=== PATIENT | female | born 1955 | race Caucasian/White ===

== ENCOUNTER 2017-03-15 03:27 | Observation (INO) | payer BC ==
[~2017-03-15] VITALS: Ht 160 cm; Wt 82.0 kg
[~2017-03-15 03:27] MED LIST: ASPIRIN325 MG PO; CIPRO500 MG PO; CLEOCIN150 MG PO; CLINDAMYCIN HCL75 MG PO; DIFLUCAN150 MG PO; DIOVAN160 MG PO; DRISDOL50000 UNIT PO; ESTRACE42.5 GM VG; FLAGYL500 MG PO; HYDROCODON-ACE1 EAC7 PO; LEVAQUIN750 MG PO; METRONIDAZOLE500 MG PO; VIMOVO 500-201 EAC1 PO; VITAMIN D34000 UNIT PO; ZOFRAN ODT4 MG PO
[2017-03-15 04:26] LABS: EOSINOPHIL (%) 0.7 % (0-5); EOSINOPHIL COUNT 0.1 K/uL (0-0.3); HEMATOCRIT 39.5 % (36.0-46.0); IMMATURE GRANULOCYTE (%) 0.7 % (0.0-0.7); IMMATURE GRANULOCYTE COUNT 0.1 K/uL; INSTRUMENT ABS NEUTROPHIL CT 5.9 K/uL; LYMPHOCYTE COUNT 2.9 K/uL (1.0-2.8); MCH 29.7 PG (29.0-34.0); MCHC 33.4 G/DL (30.0-36.0); MCV 88.8 FL (83-99); MEAN PLAT.VOLUME 9.2 uM^3 (9.5-12.4); MONOCYTE (%) 5.4 % (3-12); MONOCYTE COUNT 0.5 K/uL (0-0.8); NEUTROPHIL (%) 62.6 % (45-76); NEUTROPHIL COUNT 5.9 K/uL (1.8-6.4); PLATELET COUNT 198 K/uL (156-360); RBC DIS.WIDTH-CV 12.4 % (11.8-14.6); RBC DIS.WIDTH-SD 39.8 % (39-53); RED BLOOD COUNT 4.45 M/uL (3.80-5.20); WHITE BLOOD COUNT 9.5 K/uL (4.1-10.2)
[2017-03-15 04:34] LABS: CHLORIDE 108 mEq/L (99-109); POTASSIUM 3.5 mEq/L (3.7-5.4); SODIUM 143 mEq/L (136-147)
[2017-03-15 04:36] LABS: GLUCOSE 109 mg/dL (70-99)
[2017-03-15 04:37] LABS: ANION GAP 12 MEQ/L (2-14)
[2017-03-15 04:40] LABS: GFR ESTIMATE (CALCULATED) > 59 mL/min/
[2017-03-15 04:41] LABS: UREA NITROGEN (BUN) 23 mg/dL (9-23)
[2017-03-15 04:46] LABS: TROP-I INTERPRETATION NEGATIVE; TROPONIN-I < 0.01 ng/mL (0.0-0.30)
[2017-03-15 06:46] VITALS: BP 140/77
[2017-03-15 08:45] VITALS: BP 99/61
[2017-03-15 11:26] LABS: TROP-I INTERPRETATION NEGATIVE; TROPONIN-I < 0.01 ng/mL (0.0-0.30)
[2017-03-15 11:28] LABS: HDL CHOLESTEROL 42 MG/DL (Desirable>=50); LDL CHOLESTEROL 77 mg/dL (Desirable<100); NON-HDL CHOLESTEROL 96 mg/dL (Desirable<160); TOTAL CHOLESTEROL 138 mg/dL (Desirable<200); TRIGLYCERIDES 95 MG/DL (Normal: <150)
[2017-03-15 11:33] VITALS: BP 107/62
[2017-03-15] MEDS ORDERED: LO-DOSE ASPIRIN81 M2 PO (11:56)
[2017-03-15] MEDS ORDERED: CODEINE-GUAIFE120 ML PO (11:58)
[2017-03-15] MEDS ORDERED: ROBITUSSIN100 MG/5 M PO (11:58)
[2017-03-15 16:03] VITALS: BP 109/61
[2017-03-15 17:12] LABS: TROP-I INTERPRETATION NEGATIVE; TROPONIN-I < 0.01 ng/mL (0.0-0.30)
[2017-03-15] MEDS ORDERED: FAMOTIDINE20 MG PO (17:42)
== END 2017-03-15 19:03 | disposition home or self-care (01) ==
LOC: EME → EDBD 03:27 → EDOF 05:02 → ENRESERV 05:11 → 5WEST 06:00
PROVIDERS: Emergency Medicine; Physician Assistant Medical
DX: R07.9 Chest pain, unspecified (principal); I47.1 Supraventricular tachycardia; R06.02 Shortness of breath; R11.0 Nausea; R05 Cough; R00.2 Palpitations; R42 Dizziness and giddiness; I10 Essential (primary) hypertension; Z79.1 Long term (current) use of non-steroidal anti-inflammatories (NSAID); K21.0 Gastro-esophageal reflux disease with esophagitis; M35.9 Systemic involvement of connective tissue, unspecified; M50.30 Other cervical disc degeneration, unspecified cervical region; M45.9 Ankylosing spondylitis of unspecified sites in spine; Z87.19 Personal history of other diseases of the digestive system; Z87.891 Personal history of nicotine dependence; Z83.49 Family history of other endocrine, nutritional and metabolic diseases; Z79.82 Long term (current) use of aspirin; E66.9 Obesity, unspecified; Z68.32 Body mass index [BMI] 32.0-32.9, adult; Z79.52 Long term (current) use of systemic steroids; Z88.0 Allergy status to penicillin; Z88.1 Allergy status to other antibiotic agents; Z88.2 Allergy status to sulfonamides
CPT/HCPCS: 71010; 80048; 80061; 84484; 85025; 87502; 93005; 99281; 99284; G0378; J1650; J2405

== ENCOUNTER 2017-10-01 18:55 | Emergency (ER) | payer BC ==
[~2017-10-01] VITALS: Ht 160 cm; Wt 82.1 kg
[~2017-10-01 18:55] MED LIST changes: +CODEINE-GUAIFE120 ML PO; +FAMOTIDINE20 MG PO; +LO-DOSE ASPIRIN81 M2 PO; +ROBITUSSIN100 MG/5 M PO
[2017-10-01 20:03] LABS: BASOPHIL (%) 0.2 % (0-1); EOSINOPHIL (%) 0.9 % (0-5); EOSINOPHIL COUNT 0.1 K/uL (0-0.3); HEMATOCRIT 37.1 % (36.0-46.0); HEMOGLOBIN 12.6 G/DL (11.9-15.5); IMMATURE GRANULOCYTE (%) 0.3 % (0.0-0.7); LYMPHOCYTE (%) 17.9 % (15-42); LYMPHOCYTE COUNT 1.6 K/uL (1.0-2.8); MCH 30.1 PG (29.0-34.0); MCV 88.5 FL (83-99); MONOCYTE (%) 6.6 % (3-12); MONOCYTE COUNT 0.6 K/uL (0-0.8); NEUTROPHIL (%) 74.1 % (45-76); NEUTROPHIL COUNT 6.8 K/uL (1.8-6.4); PLATELET COUNT 183 K/uL (156-360); RBC DIS.WIDTH-CV 12.5 % (11.8-14.6); RBC DIS.WIDTH-SD 40.4 % (39-53); RED BLOOD COUNT 4.19 M/uL (3.80-5.20); WHITE BLOOD COUNT 9.1 K/uL (4.1-10.2)
[2017-10-01 20:14] LABS: ALBUMIN 4.1 g/dL (3.2-4.8); CHLORIDE 112 mEq/L (99-109); POTASSIUM 4.1 mEq/L (3.7-5.4); SODIUM 145 mEq/L (136-147)
[2017-10-01 20:16] LABS: GLUCOSE 108 mg/dL (70-99)
[2017-10-01 20:17] LABS: TOTAL PROTEIN 6.3 g/dL (6.4-8.3)
[2017-10-01 20:18] LABS: TOTAL BILIRUBIN 0.4 mg/dL (0.0-1.0)
[2017-10-01 20:20] LABS: ALKALINE PHOSPHATASE 67 IU/L (3-129); CREATININE 1.2 mg/dL (0.6-1.3); GFR ESTIMATE (CALCULATED) 49 mL/min/
[2017-10-01 20:21] LABS: UREA NITROGEN (BUN) 26 mg/dL (9-23)
[2017-10-01 20:22] LABS: AST (GOT) 21 IU/L (2-34)
[2017-10-01 20:23] LABS: ALT (GPT) 21 IU/L (3-49)
[2017-10-01 20:24] LABS: CREATINE KINASE 144 IU/L (1-294); LIPASE 24 U/L (1.0-51.0); TROP-I INTERPRETATION NEGATIVE; TROPONIN-I < 0.01 ng/mL (0.0-0.30)
[2017-10-01 21:29] LABS: APPEARANCE SL.HAZY ((CLEAR)); BILIRUBIN NEGATIVE; BLOOD NEGATIVE; COLOR YELLOW ((YELLOW)); GLUCOSE (STRIP) NEGATIVE; KETONES 5; LEUKOCYTES SMALL; NITRITE NEGATIVE; PROTEIN (STRIP) 30; SPECIFIC GRAVITY 1.026 (1.000-1.030)
[2017-10-01 21:36] LABS: BACTERIA NONE SEEN /HPF; EPITHELIAL CELLS 1+ /HPF; HYALINE CASTS 20-30 /LPF; MUCUS 3+ /LPF; RED BLOOD CELLS 0-5 /HPF (0-5); UCUL ADDED? YES
[2017-10-01 22:52] VITALS: BP 110/70
== END 2017-10-01 22:53 | disposition home or self-care (01) ==
LOC: EME 18:55
PROVIDERS: Emergency Medicine
DX: E86.0 Dehydration (principal); R55 Syncope and collapse; I10 Essential (primary) hypertension; Z87.891 Personal history of nicotine dependence; Z90.49 Acquired absence of other specified parts of digestive tract; Z79.82 Long term (current) use of aspirin; Z88.1 Allergy status to other antibiotic agents; Z88.2 Allergy status to sulfonamides; Z88.0 Allergy status to penicillin; Z88.8 Allergy status to other drugs, medicaments and biological substances
CPT/HCPCS: 71045; 80053; 81003; 82550; 83690; 84484; 85025; 87086; 93005; 99281; 99285; J2765; J7030